=== PATIENT | female | born 1965 | race Caucasian/White ===

== ENCOUNTER → 2016-10-17 | Outpatient (CLI) | payer BC, OTHER ==
[~2016-10-17] MED LIST: ALBU1AER9 INH; ASCO1CAP3 PO; BIOT1CAP8 PO; CALC-354 PO; CALC500C73 PO; CHOL100010 PO; FLUO0.05 TOP; HYDR12.56 PO; IBUP-1427 PO; LORA-741 PO; MOME100A INH; PRLSR20 PO; [UNRECOGNIZED DRUG - OTHER] PO
== END | disposition home or self-care (01) ==
LOC: C.LABBFT 15:54
PROVIDERS: ATTEND Internal Medicine
DX: L65.9 Nonscarring hair loss, unspecified (principal)

== ENCOUNTER → 2016-10-26 | Day surgery (SDC) | payer BC ==
[2016-10-18 11:48] VITALS: BMI 38.0
[~2016-10-26] VITALS: Ht 167.6 cm; Wt 106.8 kg
[~2016-10-26] MED LIST changes: -ASCO1CAP3 PO; -CALC-354 PO; -CHOL100010 PO; -FLUO0.05 TOP; -HYDR12.56 PO; -IBUP-1427 PO; +LIDOCAINE HCL 2% 2 ML VIAL (20MG/ML) ONE; +ONDANSETRON INJ 2 MG/ML 2 ML VIAL ONE; +PROPOFOL IV EMULSION 10 MG/ML 20 ML VIAL IV ONE; +SODIUM CHLORIDE 0.9% 500ML 500 ML IV ONE
[2016-10-26 09:31] VITALS: Ht 167.6 cm; Wt 106.8 kg
--- NOTE | 2016-10-26 10:30 | Endo History and Physical ---
History & Physical Date of Service: Oct 26, 2016. Chief Complaint: Hx tubular adenoma Referring Physician: Dr. Brenner History of Present Illness 51 yo CF who presents for colonoscopy secondary to history of colon polyps. Past Surgical History Hx Cardiac Surgery: No Hx Internal Defibrillator: No Hx Pacemaker: No Hx Abdominal Surgery: Yes (GASTRIC BYPASS, RON[place]D) Hx of Implantable Prosthesis: No Hx Post-Op Nausea and Vomiting: Yes Hx Cancer Surgery: No Hx Thoracic Surgery: No Hx Orthopedic: Yes (LT FOOT SURGERY WITH SCREW) Hx Urinary Tract Surgery: No Family History Colon CA, Polyp Social History Smoking Status: Former Smoker Hx Substance Use: No Hx Alcohol Use: Yes (QUIT 24 YEARS AGO) Allergies Coded Allergies: Adhesives (Verified Allergy, Unknown, REDNESS, 10/18/16) Latex1 -Allergic Contact Dermititis (Verified Allergy, Unknown, REDNESS, ) NO KNOWN DRUG ALLERGIES (Verified Allergy, Unknown, ., 10/18/16) Current Medications Reported Home Medications Medications Dose Route/Sig Max Daily Dose Days Date Category [Vitamin A,D,E,K] 1 Tab PO QAM 10/18/16 Reported Calcium (Calcium Carbonate) 500 Mg Chw 1 Tab PO QAM 10/18/16 Reported Biotin 1 Mg Cap 1 Tab PO QAM 10/18/16 Reported Prilosec (Omeprazole) 20 Mg Capcr 20 Mg PO QAM 10/18/16 Reported Ativan (Lorazepam) 0.5 Mg Tab 0.5 Mg PO BID PRN 10/18/16 Reported Proair Hfa (Albuterol Sulfate) 108 Mcg/ Aer 1-2 Puff INH PRN 06/06/15 Reported Dulera 100/5 Mcg (Mometasone Furoate-Formoterol) 1 Aer Aer 2 Puff INH BID 09/04/13 Reported Vital Signs Weight (Kilograms): 106.82 Height (Feet): 5 Height (Inches): 6 Date Time Temp Pulse Resp B/P Pulse Ox O2 Delivery O2 Flow Rate FiO2 10/26/16 09:42 36.7 73 18 140/71 96 Room Air Physical Exam General Appearance: WD/WN, no apparent distress Respiratory/Chest: Auscultation: breath sounds normal Cardiovascular: Heart Auscultation: RRR Abdomen: Bowel Sounds: normal Inspection & Palpation: soft, non-distended, no tenderness, guarding & rebound Assessment and Plan Assessment: 51 yo CF who presents for colonoscopy secondary to history of colon polyps. Plan: Proceed with colonoscopy.
--- NOTE | 2016-10-26 11:28 | Discharge Instructions ---
Endoscopy Patient Instructions Date / Procedure(s) Performed Oct 26, 2016. Colonoscopy Allergy Information Coded Allergies: Adhesives (Verified Allergy, Unknown, REDNESS, 10/18/16) Latex1 -Allergic Contact Dermititis (Verified Allergy, Unknown, REDNESS, ) NO KNOWN DRUG ALLERGIES (Verified Allergy, Unknown, ., 10/18/16) Discharge Date / Findings Oct 26, 2016. Colon polyps Medication Instructions OK to resume all medications today as prescribed Reported Home Medications Medications Dose Route/Sig Max Daily Dose Days Date Category [Vitamin A,D,E,K] 1 Tab PO QAM 10/18/16 Reported Calcium (Calcium Carbonate) 500 Mg Chw 1 Tab PO QAM 10/18/16 Reported Biotin 1 Mg Cap 1 Tab PO QAM 10/18/16 Reported Prilosec (Omeprazole) 20 Mg Capcr 20 Mg PO QAM 10/18/16 Reported Ativan (Lorazepam) 0.5 Mg Tab 0.5 Mg PO BID PRN 10/18/16 Reported Proair Hfa (Albuterol Sulfate) 108 Mcg/ Aer 1-2 Puff INH PRN 06/06/15 Reported Dulera 100/5 Mcg (Mometasone Furoate-Formoterol) 1 Aer Aer 2 Puff INH BID 09/04/13 Reported Provider Instructions Activity Restrictions - No exercising or heavy lifting for 24 hours. - Do not drink alcohol the day of the procedure. - Do not drive a car or operate machinery until the day after the procedure. - Do not make any important decisions or sign important papers in 24 hours after the procedure. Following Day: - Return to full activity which may include returning to work/school. Diet Start your diet with liquids and light foods (jello, soup, juice, toast). Then eat your usual diet if not nauseated. Treatment For Common After Affects For mild abdominal pain, bloating, or excessive gas: - Rest - Eat lightly - Lie on right side Follow-Up Information Follow-up with Dr. Brenner as scheduled Anesthesia Information What You Should Know You have had a procedure that required some medicine to reduce anxiety and discomfort. This treatment is called moderate sedation. After receiving the treatment, you may be sleepy, but you will be able to breathe on your own. The effects of the treatment may last for several hours. Follow these instructions along with Activity/Diet recommendations noted above: * Do NOT do anything where dizziness or clumsiness would be dangerous. * Rest quietly at home today, then you can be up and about tomorrow. * Have a responsible person stay with you the rest of today. * You may have had an I.V. today. If so, you may take the dressing off later today. Recommendations Call your doctor if: * Trouble breathing * Continuous vomiting for more than 24 hours * Temperature above 101 degrees * Severe abdominal pain or bloating * Pain not relieved by pain medicine ordered * There is increased drainage or redness from any incision * A large amount of rectal bleeding greater than 2-3 tablespoons. (If you had a polyp/s removed or have hemorrhoids, a small amount of blood - from the rectum is to be expected.) * You have any unanswered questions or concerns. IN THE EVENT OF A SERIOUS EMERGENCY, GO TO THE NEAREST EMERGENCY ROOM Your discharge instructions were prepared by provider Ronald Jerez. Patient Instructions Signature Page Consuelo Khan Patient (or Guardian) Signature/Date: I have read and understand the instructions given to me by my caregivers. Caregiver/RN/Doctor Signature/Date: The above-named patient and/or guardian has received patient instructions on this date. + Original Patient Signature Page (only) stays with chart. Please make copy for patient.
--- NOTE | 2016-10-26 11:35 | GI REPORT ---
Procedure Date: 10/26/2016 10:53 AM Procedure: Colonoscopy Indications: High risk colon cancer surveillance: Personal history of colonic polyps Medicines: Monitored Anesthesia Care Complications: No immediate complications. Estimated Blood Loss: Estimated blood loss: none. Procedure: Pre-Anesthesia Assessment: - Prior to the procedure, a History and Physical was performed, and patient medications and allergies were reviewed. The patient's tolerance of previous anesthesia was also reviewed. The risks and benefits of the procedure and the sedation options and risks were discussed with the patient. All questions were answered, and informed consent was obtained. Prior Anticoagulants: The patient has taken no previous anticoagulant or antiplatelet agents. ASA Grade Assessment: III - A patient with severe systemic disease. After reviewing the risks and benefits, the patient was deemed in satisfactory condition to undergo the procedure. After I obtained informed consent, the scope was passed under direct vision. Throughout the procedure, the patient's blood pressure, pulse, and oxygen saturations were monitored continuously. The On-site loaner was introduced through the anus and advanced to the terminal ileum. The colonoscopy was performed without difficulty. The patient tolerated the procedure well. The quality of the bowel preparation was good. The terminal ileum, ileocecal valve, appendiceal orifice, and rectum were photographed. Findings: A 3 mm polyp was found in the transverse colon. The polyp was sessile. The polyp was removed with a cold biopsy forceps. Resection and retrieval were complete. A 6 mm polyp was found in the sigmoid colon. The polyp was sessile. The polyp was removed with a hot snare. Resection and retrieval were complete. Impression: - One 3 mm polyp in the transverse colon, removed with a cold biopsy forceps. Resected and retrieved. - One 6 mm polyp in the sigmoid colon, removed with a hot snare. Resected and retrieved. Recommendation: - Resume previous diet. - Continue present medications. - Repeat colonoscopy for surveillance based on pathology results. - Return to primary care physician as previously scheduled. Ronald Jerez, DO 10/26/2016 11:34:21 AM This report has been signed electronically. Note Initiated On: 10/26/2016 10:53 AM
--- NOTE | 2016-10-26 11:55 | Anesthesiology Progress Note ---
Anesthesia Post Op Note Date & Time Oct 26, 2016 at 11:55 Vital Signs Pain Intensity: 0 Vital Signs Past 12 Hours Date Time Temp Pulse Resp B/P Pulse Ox O2 Delivery O2 Flow Rate FiO2 10/26/16 11:42 61 16 112/72 97 Room Air 10/26/16 11:27 76 16 112/74 97 Room Air 10/26/16 09:42 36.7 73 18 140/71 96 Room Air Notes Mental Status: alert / awake / arousable, participated in evaluation Pt Amnestic to Procedure: Yes Nausea / Vomiting: adequately controlled Pain: adequately controlled Airway Patency, RR, SpO2: stable & adequate BP & HR: stable & adequate Hydration State: stable & adequate Anesthetic Complications: no major complications apparent
[2016-10-26 11:57] VITALS: BP 118/74; PULSE 58; O2SAT 96
== END | disposition home or self-care (01) ==
LOC: C.GI 09:18
PROVIDERS: ATTEND Internal Medicine
DX: Z12.11 Encounter for screening for malignant neoplasm of colon (principal); Z86.010 Personal history of colon polyps; D12.3 Benign neoplasm of transverse colon; D12.5 Benign neoplasm of sigmoid colon; J45.909 Unspecified asthma, uncomplicated; F41.9 Anxiety disorder, unspecified; Z68.38 Body mass index [BMI] 38.0-38.9, adult; E66.9 Obesity, unspecified; Z91.040 Latex allergy status; Z98.84 Bariatric surgery status; Z87.891 Personal history of nicotine dependence; Z98.890 Other specified postprocedural states; Z80.0 Family history of malignant neoplasm of digestive organs

== ENCOUNTER → 2017-05-10 | Outpatient (CLI) | payer BC ==
[~2017-05-10] MED LIST changes: -LIDOCAINE HCL 2% 2 ML VIAL (20MG/ML) ONE; -ONDANSETRON INJ 2 MG/ML 2 ML VIAL ONE; -PROPOFOL IV EMULSION 10 MG/ML 20 ML VIAL IV ONE; -SODIUM CHLORIDE 0.9% 500ML 500 ML IV ONE
== END | disposition home or self-care (01) ==
LOC: C.PATHSPEC 17:17
PROVIDERS: ATTEND Obstetrics & Gynecology
DX: N90.7 Vulvar cyst (principal)

== ENCOUNTER → 2017-05-22 | Outpatient (CLI) | payer BC ==
[~2017-05-22] MED LIST changes: +GADAVIST IV PRN
--- NOTE | 2017-05-22 11:27 | DIAGNOSTIC IMAGING REPORT ---
LUMBAR SPINE COMBINATION CLINICAL HISTORY: 51 years-old Female with LOW BACK PAIN; LUMBAR RADICULOPATHY. Patient reports that the pain radiates into the right hip with numbness. Patient went to a chiropractor which reportedly made the pain worse. COMPARISON: Lumbar spine CT 05/01/2012 TECHNIQUE: Multiplanar, multi sequence MRI of the lumbar spine was performed both with and without the use of 8 mL Gadavist. FINDINGS: There is straightening of the normal lumbar lordosis. Modic type I endplate degenerative changes are present at L4-L5 and to a minimal extent along the anteroinferior aspect of L1. Intervertebral disc space narrowing seen most prominently at the L3-L4 and L4-L5 levels with associated posterior spondylotic spurring and annular disc bulging as below. There is an annular fissure at L4-L5. Varying degrees of facet arthropathy noted within the lower lumbar spine. Conus medullaris terminates at the T12-L1 level. Signal from the cord is within normal limits. No focal fracture or marrow replacing process identified. Mild convex left curvature of the lumbar spine redemonstrated. No abnormal enhancement is identified. The imaged intra-abdominal, intrapelvic and paraspinal structures demonstrate no gross abnormal. T12-L1: No central canal or neural foraminal stenosis. L1-L2: Mild facet arthrosis without significant central canal or neural foraminal stenosis. L2-L3: Mild intervertebral disc space narrowing and disc desiccation with facet arthrosis. Small circumferential broad-based disc bulge effaces the ventral thecal sac and causes mild bilateral foraminal narrowing. L3-L4: Mild to moderate intervertebral disc space narrowing with mild facet arthrosis, ligamentum flavum redundancy and small left facet effusion is present with posterior spondylitic ridging, circumferential annular disc bulge and broad-based right foraminal/extraforaminal disc protrusion seen nicely on image 16 of the axial T2 series causes [id number] right foraminal narrowing. The left foramen and central canal are generally patent. L4-L5: Moderate intervertebral disc space narrowing, facet arthrosis and ligamentum flavum redundancy noted with posterior spondylitic spurring. Circumferential annular disc bulge is present with a small annular fissure. These changes cause mild central canal, mild left and moderate right foraminal narrowing. L5-S1: Mild intervertebral disc space narrowing with posterior spondylitic spurring, facet arthrosis and facet effusions are noted. Broad-based posterior disc bulge effaces the ventral thecal sac without significant central canal narrowing. There is mild right foraminal stenosis. The left foramen is patent. IMPRESSION: 1. Multilevel discogenic degenerative changes and facet arthropathy as above, most pronounced at the L3-L4 and L4-L5 levels. Modic type I endplate changes are seen at L4-L5. 2. At L3-L4, degenerative changes cause mild to moderate right foraminal stenosis. 3. At L4-L5, combination of facet arthrosis and discogenic degeneration cause mild central canal, mild left and moderate right foraminal narrowing. 4. No abnormal enhancement is identified. The above report was generated using voice recognition software. It may contain grammatical, syntax or spelling errors. Electronically signed by: George Helton M.D. 05/22/2017 11:26 AM Dictated Date/Time: 05/22/2017 11:12 AM
== END | disposition home or self-care (01) ==
LOC: C.MRI 09:58
PROVIDERS: ATTEND Internal Medicine
DX: M47.26 Other spondylosis with radiculopathy, lumbar region (principal); M48.06 Spinal stenosis, lumbar region

== ENCOUNTER 2017-09-24 12:03 | Emergency (ER) | payer BC ==
[~2017-09-24] VITALS: Ht 167.6 cm; Wt 71.9 kg
[~2017-09-24 12:03] MED LIST changes: -GADAVIST IV PRN; -LORA-741 PO; +OXYC1TAB3 PO; +PEDICHW50 PO; +VITA80005 PO
[2017-09-24 12:14] VITALS: TEMP 36.6; Ht 167.6 cm; Wt 71.9 kg
[2017-09-24 12:37] LABS: URINE APPEARANCE CLEAR (CLEAR); URINE BILIRUBIN NEG (NEG); URINE COLOR YELLOW; URINE EPITHELIAL CELL AUTO 0-5 /lpf (0-5); URINE NITRITE NEG (NEG); URINE PH 5.5 (4.5-7.5); UROBILINOGEN NEG (NEG); ZZUR CULT IF INDIC CLEAN CATCH NO
[2017-09-24 12:38] LABS: MANUAL MICROSCOPIC REQUIRED? NO; REVIEW REQ? NO
[2017-09-24] MEDS ORDERED: MOME200A INH (12:47)
[2017-09-24] MEDS ORDERED: MULTCHW22 PO (12:47)
[2017-09-24] MEDS ORDERED: VITATAB19 PO (12:48)
[2017-09-24] MEDS ORDERED: OMEP20CA9 PO (12:48)
[2017-09-24] MEDS ORDERED: CALC600T9 PO (12:48)
[2017-09-24] MEDS ORDERED: ONDANSETRON INJ 2 MG/ML 2 ML VIAL IV STA (12:56)
[2017-09-24] MEDS ORDERED: KETOROLAC TROMETHAMINE 30 MG/ML VIAL IV STA (12:59)
[2017-09-24 13:15] LABS: BASO % 0.5 %; BASO ABS # 0.04 K/uL (0-0.2); COMPLETE YES; EOS % 1.7 %; HEMATOCRIT 44.2 % (37-47); IG% 0.2 %; LYMPH % 22.4 %; LYMPH ABS # 1.89 K/uL (1.2-3.4); MEAN CELL VOLUME 91.9 fL (80-100); MEAN CORPUSCULAR HGB CONC 34.8 g/dl (32-36); MEAN PLATELET VOLUME 11.5 fL (7.4-10.4); MONO % 6.5 %; NEUT % 68.7 %; PLATELET COUNT 186 K/uL (130-400); RED BLOOD COUNT 4.81 M/uL (4.2-5.4); WHITE BLOOD COUNT 8.45 K/uL (4.8-10.8)
--- NOTE | 2017-09-24 13:17 | EMERGENCY ROOM VISIT NOTE ---
History Report prepared by Frances: Aubrey Bansal Under the Supervision of: Dr. Lauren Andrews D.O. First contact with patient: 12:37 Chief Complaint: URINARY SYMPTOMS Stated Complaint: BLOOD IN URINE Nursing Triage Summary: Pt. reports onset of bloody urine yesterday accompanied by suprapubic pain and right sided back pain. Denies pain with urination. History of Present Illness The patient is a 52 year old female who presents to the Emergency Room with complaints of persistent hematuria starting yesterday. She additionally notes that she has been having right sided back pain for the past few months, though she states that she was diagnosed with a slipped disc. However, she states that the pain has been worse yesterday and waxes and wanes. She reports that she has a history of UTIs, though she does not have any history of kidney stones. The patient additionally notes that she is currently nauseated and has some pressure in her abdomen. She denies any leg pain, leg swelling, and other medical problems. Source of History: patient Onset: yesterday Position: other (global) Quality: other (hematuria) Timing: other (persistent) Associated Symptoms: + nausea, + abdominal pain (pressure), + back pain Review of Systems See HPI for pertinent positives & negatives. A total of 10 systems reviewed and were otherwise negative. Past Medical & Surgical Medical Problems: (1) Asthma Family History Cancer Diabetes mellitus Gallbladder disease Heart disease Hypertension Social History Smoking Status: Former Smoker Alcohol Use: none Drug Use: none Marital Status: Housing Status: lives with family Occupation Status: employed Current/Historical Medications Scheduled Calcium Carbonate-Vitamin D (Calcium + D), 1 TAB PO DAILY Mometasone Furoate-Formoterol (Dulera 200/5 Mcg), 2 PUFF INH DAILY Multiple Vitamins W/ Minerals ([place]), 1 TAB PO BID Omeprazole (Prilosec), 20 MG PO DAILY Vitamin A-Beta Carotene (Vitamin A), 1 TAB PO DAILY Allergies Coded Allergies: Adhesives (Verified Allergy, Unknown, REDNESS, 10/18/16) Latex1 -Allergic Contact Dermititis (Verified Allergy, Unknown, REDNESS, ) NO KNOWN DRUG ALLERGIES (Verified Allergy, Unknown, ., 10/18/16) Physical Exam Vital Signs Date Time Temp Pulse Resp B/P (MAP) Pulse Ox O2 Delivery O2 Flow Rate FiO2 09/24/17 15:19 56 16 126/75 97 09/24/17 14:20 61 16 131/76 97 Room Air 09/24/17 13:11 50 16 157/91 96 Room Air 09/24/17 12:14 36.6 64 20 153/102 98 Room Air Physical Exam HEENT: Head - normocephalic and atraumatic Pupils are equal, round, and reactive to light. Extraocular eye muscles are intact, and sclera are anicteric. Nose - moist nasal mucosa without discharge. Mouth - moist buccal mucosa. Oropharynx is nonerythematous and there is no tonsillar exudate or edema noted. Neck: Supple; no JVD, nuchal rigidity, cervical lymphadenopathy. Heart: Regular rate and rhythm. There is a normal S1 and S2 with no murmurs, clicks, or gallops appreciated. Lungs: Clear to auscultation bilaterally with no wheezes, rales, or rhonchi. Abdomen: Suprapubic pain with palpation. Soft, nondistended, with good bowel sounds. There are no palpable pulsatile masses or hepatosplenomegaly. There is no guarding, rigidity, or rebound noted. Extremities: No evidence of cyanosis, clubbing, or edema. There are easily palpable peripheral pulses. Skin: warm and dry with good turgor and no rashes. Medical Decision & Procedures ER Provider Diagnostic Interpretation: Radiology results as stated below per my review and the radiologist's interpretation: CT SCAN OF THE ABDOMEN AND PELVIS WITHOUT CONTRAST CLINICAL HISTORY: Right flank pain and hematuria COMPARISON STUDY: No previous studies for comparison. TECHNIQUE: CT scan of the abdomen and pelvis was performed from the lung bases to the proximal femurs. Images are reviewed in the axial, sagittal, and coronal planes. IV contrast was not administered for this examination. A dose lowering technique was utilized adhering to the principles of ALARA. CT DOSE: 750.98 mGy.cm FINDINGS: Lower chest: There is a hiatal hernia. There are postsurgical changes of a gastric bypass. There is a trace right pleural effusion Liver: The unenhanced liver is normal in size, contour, and attenuation. There is no intrahepatic biliary ductal dilatation. Gallbladder: Surgically absent Spleen: Normal in size and attenuation. Pancreas: Unremarkable. Adrenal glands: Unremarkable. Kidneys: There is a 7 mm calculus within the right renal pelvis. There is a 4.5 mm lower pole left renal calculus. No right renal calculi are visualized. There is minimal fullness of the left renal collecting system. No ureteral or bladder calculi are visualized. There is a suggestion of minimal wall thickening of the left renal pelvis. The findings are likely secondary to infection or intermittent obstruction. Bowel: There are no transition zones indicate bowel obstruction. The appendix appears normal. There is no acute diverticulitis. There are postsurgical changes of a gastric bypass and Sean-en-Y anastomosis. Peritoneum: There is no intraperitoneal free air or abdominal ascites. Vasculature: The abdominal aorta is normal in course and caliber. Adenopathy: None. Pelvic viscera: The uterus appears surgically absent. Skeletal structures: No destructive osseous lesions are seen. IMPRESSION: 1. Left-sided nephrolithiasis. 2. Minimal fullness the left renal collecting system with minimal wall thickening of the left renal pelvis. The findings are likely secondary to infection or intermittent obstruction 3. No ureteral or bladder calculi identified 4. No evidence of bowel obstruction. No evidence of free air 5. Surgically absent uterus and gallbladder 6. Postsurgical changes are prior gastric bypass and Sean-en-Y anastomosis Electronically signed by: Tommy Bourne M.D. 09/24/2017 2:20 PM Dictated Date/Time: 09/24/2017 2:14 PM Laboratory Results 09/24/17 12:33 Red Blood Count 4.81, Mean Corpuscular Volume 91.9, Mean Corpuscular Hemoglobin 32.0, Mean Corpuscular Hemoglobin Concent 34.8, Mean Platelet Volume 11.5, Neutrophils (%) (Auto) 68.7, Lymphocytes (%) (Auto) 22.4, Monocytes (%) (Auto) 6.5, Eosinophils (%) (Auto) 1.7, Basophils (%) (Auto) 0.5, Neutrophils # (Auto) 5.81, Lymphocytes # (Auto) 1.89, Monocytes # (Auto) 0.55, Eosinophils # (Auto) 0.14, Basophils # (Auto) 0.04 09/24/17 12:33 Test 09/24/17 12:00 09/24/17 12:33 Urine Color YELLOW Urine Appearance CLEAR (CLEAR) Urine pH 5.5 (4.5-7.5) Urine Specific [place] 1.010 (1.000-1.030) Urine Protein NEG (NEG) Urine Glucose (UA) NEG (NEG) Urine Ketones NEG (NEG) Urine Occult Blood 3+ (NEG) Urine Nitrite NEG (NEG) Urine Bilirubin NEG (NEG) Urine Urobilinogen NEG (NEG) Urine Leukocyte Esterase NEG (NEG) Urine WBC (Auto) 1-5 /hpf (0-5) Urine RBC (Auto) 10-30 /hpf (0-4) Urine Hyaline Casts (Auto) 0 /lpf (0-5) Urine Epithelial Cells (Auto) 0-5 /lpf (0-5) Urine Bacteria (Auto) NEG (NEG) White Blood Count 8.45 K/uL (4.8-10.8) Red Blood Count 4.81 M/uL (4.2-5.4) Hemoglobin 15.4 g/dL (12.0-16.0) Hematocrit 44.2 % (37-47) Mean Corpuscular Volume 91.9 fL (80-100) Mean Corpuscular Hemoglobin 32.0 pg (25-34) Mean Corpuscular Hemoglobin Concent 34.8 g/dl (32-36) Platelet Count 186 K/uL (130-400) Mean Platelet Volume 11.5 fL (7.4-10.4) Neutrophils (%) (Auto) 68.7 % Lymphocytes (%) (Auto) 22.4 % Monocytes (%) (Auto) 6.5 % Eosinophils (%) (Auto) 1.7 % Basophils (%) (Auto) 0.5 % Neutrophils # (Auto) 5.81 K/uL (1.4-6.5) Lymphocytes # (Auto) 1.89 K/uL (1.2-3.4) Monocytes # (Auto) 0.55 K/uL (0.11-0.59) Eosinophils # (Auto) 0.14 K/uL (0-0.5) Basophils # (Auto) 0.04 K/uL (0-0.2) RDW Standard Deviation 43.6 fL (36.4-46.3) RDW Coefficient of Variation 13.1 % (11.5-14.5) Immature Granulocyte % (Auto) 0.2 % Immature Granulocyte # (Auto) 0.02 K/uL (0.00-0.02) Anion Gap 6.0 mmol/L (3-11) Est Creatinine Clear Calc Drug Dose 104.0 ml/min Estimated GFR () 119.1 Estimated GFR (Non- 102.8 BUN/Creatinine Ratio 18.9 (10-20) Calcium Level 8.6 mg/dl (8.5-10.1) Laboratory results per my review. Medications Administered Medications (Trade) Dose Ordered Sig/Shaan Route Start Time Stop Time Status Last Admin Dose Admin Ondansetron HCl (Zofran Inj) 4 mg NOW STAT IV 09/24/17 12:56 09/24/17 12:57 DC 09/24/17 13:06 4 MG Ketorolac Tromethamine (Toradol Inj) 30 mg NOW STAT IV 09/24/17 12:59 09/24/17 13:00 DC 09/24/17 13:06 30 MG Procedure Ordered: Zofran IV and Toradol IV ED Course 1237: Past medical records reviewed. The patient was evaluated in room A9. A complete history and physical exam was performed. An IV lock was initiated and labs are drawn as above.. 1256: Zofran 4mg IV 1259: Toradol 30mg IV. The patient will go for CT scan of the abdomen/pelvis to rule out a ureteral stone. 1439: I had a long conversation with the patient, and they are going to follow up with Dr. Naylor. I discussed the discharge instructions with them, and she will be discharged home. Medical Decision The patient is a 52 year old female who presents to the ED with hematuria. Differential diagnosis includes ureteral colic, appendicitis, diverticulitis, and colitis. Lab results show: no leukocytosis, stable H&H, BUN 12, creatinine of 0.6, glucose is normal, potassium is slightly low at 3.2, and there is blood in the urine. This is a 52-year-old female patient who presents to the emergency department with right-sided flank pain and hematuria. CT showed no obvious ureteral stone on the right. It may be possible that the patient has already passed a stone on that side. She is more comfortable at this time. The patient has a 7 mm left-sided stone noted on CT. I've asked the patient to follow-up with urology. she is to return here to the emergency department immediately for worsening pain, fever or vomiting.. Medication Reconcilliation Current Medication List: was personally reviewed by me Blood Pressure Screening Patient's blood pressure: Elevated blood pressure Blood pressure disposition: Elevated BP felt to be situational Impression Primary Impression: Right flank pain Additional Impressions: Hematuria Hypokalemia Scribe Attestation The scribe's documentation has been prepared under my direction and personally reviewed by me in its entirety. I confirm that the note above accurately reflects all work, treatment, procedures, and medical decision making performed by me. Departure Information Dispostion Home / Self-Care Referrals Russ Brenner M.D. (PCP) Forms HOME CARE DOCUMENTATION FORM, IMPORTANT VISIT INFORMATION Patient Instructions ED Flank Pain Uncertain Cause, Hematuria, Hematuria Poss Causes, My [facility] Additional Instructions Rest. take plenty of clear liquids Use tylenol or motrin for pain Follow up on Monday with Dr. Naylor Return to the ER for fevers or worsening pain Problem Qualifiers Additional Impressions: Hematuria Hematuria type: unspecified type Qualified Codes: R31.9 - Hematuria, unspecified
[2017-09-24 13:22] LABS: BUN/CREATININE RATIO 18.9 (10-20); CALCIUM 8.6 mg/dl (8.5-10.1); CREATININE 0.65 mg/dl (0.60-1.20); POTASSIUM 3.2 mmol/L (3.5-5.1)
--- NOTE | 2017-09-24 14:21 | DIAGNOSTIC IMAGING REPORT ---
CT SCAN OF THE ABDOMEN AND PELVIS WITHOUT CONTRAST CLINICAL HISTORY: Right flank pain and hematuria COMPARISON STUDY: No previous studies for comparison. TECHNIQUE: CT scan of the abdomen and pelvis was performed from the lung bases to the proximal femurs. Images are reviewed in the axial, sagittal, and coronal planes. IV contrast was not administered for this examination. A dose lowering technique was utilized adhering to the principles of ALARA. CT DOSE: 750.98 mGy.cm FINDINGS: Lower chest: There is a hiatal hernia. There are postsurgical changes of a gastric bypass. There is a trace right pleural effusion Liver: The unenhanced liver is normal in size, contour, and attenuation. There is no intrahepatic biliary ductal dilatation. Gallbladder: Surgically absent Spleen: Normal in size and attenuation. Pancreas: Unremarkable. Adrenal glands: Unremarkable. Kidneys: There is a 7 mm calculus within the right renal pelvis. There is a 4.5 mm lower pole left renal calculus. No right renal calculi are visualized. There is minimal fullness of the left renal collecting system. No ureteral or bladder calculi are visualized. There is a suggestion of minimal wall thickening of the left renal pelvis. The findings are likely secondary to infection or intermittent obstruction. Bowel: There are no transition zones indicate bowel obstruction. The appendix appears normal. There is no acute diverticulitis. There are postsurgical changes of a gastric bypass and Sean-en-Y anastomosis. Peritoneum: There is no intraperitoneal free air or abdominal ascites. Vasculature: The abdominal aorta is normal in course and caliber. Adenopathy: None. Pelvic viscera: The uterus appears surgically absent. Skeletal structures: No destructive osseous lesions are seen. IMPRESSION: 1. Left-sided nephrolithiasis. 2. Minimal fullness the left renal collecting system with minimal wall thickening of the left renal pelvis. The findings are likely secondary to infection or intermittent obstruction 3. No ureteral or bladder calculi identified 4. No evidence of bowel obstruction. No evidence of free air 5. Surgically absent uterus and gallbladder 6. Postsurgical changes are prior gastric bypass and Sean-en-Y anastomosis Electronically signed by: Tommy Bourne M.D. 09/24/2017 2:20 PM Dictated Date/Time: 09/24/2017 2:14 PM
[2017-09-24 15:19] VITALS: BP 126/75; PULSE 56; O2SAT 97
[2017-09-28] MEDS ORDERED: BIOT1CAP9 PO (10:22)
[2017-09-28] MEDS ORDERED: ZNTT/150 PO (10:22)
[2017-09-28] MEDS ORDERED: DPRSO15 TOP (10:22)
[2017-09-28] MEDS ORDERED: MULT1CAP52 PO (10:22)
[2017-09-28] MEDS ORDERED: PEDICHW44 PO (10:22)
[2017-09-28] MEDS ORDERED: OXYC7.5T65 PO (10:22)
[2017-09-29] MEDS ORDERED: OXYC-57 PO (12:53)
== END 2017-09-24 15:16 | disposition home or self-care (01) ==
LOC: C.EDB 12:04 → C.EDA 15:16
DX: R10.11 Right upper quadrant pain (principal); R10.31 Right lower quadrant pain; R31.9 Hematuria, unspecified; E87.6 Hypokalemia; N20.0 Calculus of kidney; M54.9 Dorsalgia, unspecified; J45.909 Unspecified asthma, uncomplicated; Z87.440 Personal history of urinary (tract) infections; Z87.891 Personal history of nicotine dependence; Z83.3 Family history of diabetes mellitus; Z82.49 Family history of ischemic heart disease and other diseases of the circulatory system

== ENCOUNTER → 2017-09-27 | Outpatient (CLI) | payer BC ==
[~2017-09-27] MED LIST changes: -ALBU1AER9 INH; -BIOT1CAP8 PO; +BIOT1CAP9 PO; -CALC500C73 PO; +CALC600T9 PO; +DPRSO15 TOP; -MOME100A INH; +MOME200A INH; +MULT1CAP52 PO; +MULTCHW22 PO; +OMEP20CA9 PO; +OXYC-57 PO; +OXYC-737 PO; -OXYC1TAB3 PO; +OXYC7.5T65 PO; +PEDICHW44 PO; -PEDICHW50 PO; -PRLSR20 PO; +RANI150T85 PO; +TAMS0.4C38 PO; -VITA80005 PO; +VITATAB19 PO; -[UNRECOGNIZED DRUG - OTHER] PO
--- NOTE | 2017-09-27 13:31 | DIAGNOSTIC IMAGING REPORT ---
CHEST 2 VIEWS ROUTINE CLINICAL HISTORY: 52 years-old Female presenting with N20.0 Kidney stones. TECHNIQUE: PA and lateral views of the chest were obtained. COMPARISON: 09/21/2015. FINDINGS: Cardiomediastinal silhouette normal. Lungs and pleural spaces clear. Degenerative changes of the thoracic spine. Cholecystectomy and epigastric clips noted. IMPRESSION: 1. No acute cardiopulmonary disease. Electronically signed by: Chico Marie M.D. 09/27/2017 1:29 PM Dictated Date/Time: 09/27/2017 1:28 PM
== END | disposition home or self-care (01) ==
LOC: C.RAD 12:52
PROVIDERS: ATTEND Urology
DX: N20.0 Calculus of kidney (principal)

== ENCOUNTER → 2017-09-27 | Outpatient (CLI) | payer BC ==
--- NOTE | 2017-09-28 13:48 | MAMMOGRAPHY REPORT ---
BILATERAL DIGITAL SCREENING MAMMOGRAM TOMOSYNTHESIS WITH CAD: 09/27/2017 CLINICAL HISTORY: Routine screening. Patient has no complaints. TECHNIQUE: Breast tomosynthesis in addition to standard 2D mammography was performed. Current study was also evaluated with a Computer Aided Detection (CAD) system. COMPARISON: Comparison is made to exams dated: 09/26/2016 mammogram, 09/14/2015 mammogram, 3 mammogram, 09/10/2012 mammogram, 09/07/2011 mammogram, and 09/04/2009 mammogram - [facility]. BREAST COMPOSITION: The tissue of both breasts is almost entirely fatty. FINDINGS: There is decreased size of the breasts and decreased subcutaneous fat bilaterally, most li leeanne secondary to recent weight loss. There are scattered benign-appearing macro calcifications in t he breasts and stable intramammary lymph nodes in each upper outer quadrant. No suspicious mass, arc hitectural distortion or cluster of suspicious microcalcifications is seen. IMPRESSION: ACR BI-RADS CATEGORY 1: NEGATIVE There is no mammographic evidence of malignancy. A 1 year screening mammogram is recommended. The pa tient will receive written notification of the results. Approximately 10% of breast cancers are not detected with mammography. A negative mammographic report should not delay biopsy if a clinically suggestive mass is present. Zhanna Lennon M.D. ay/:09/27/2017 16:59:03 Recovery Collector: Betsy Munguia, [facility] letter sent: Normal 1/2 BI-RADS Code: ACR BI-RADS Category 1: Negative
== END | disposition home or self-care (01) ==
LOC: C.MAMM 13:39
PROVIDERS: ATTEND Obstetrics & Gynecology
DX: Z12.31 Encounter for screening mammogram for malignant neoplasm of breast (principal); N20.0 Calculus of kidney

== ENCOUNTER → 2017-09-27 | Outpatient (CLI) | payer BC | END | disposition home or self-care (01) | LOC: C.LABSPEC 17:04 | PROVIDERS: ATTEND Urology | DX: N20.0 Calculus of kidney (principal) ==

== ENCOUNTER → 2017-09-28 | Outpatient (CLI) | payer BC ==
[~2017-09-28] MED LIST changes: +ALBU1AER9 INH; +BIOT1CAP8 PO; +CALC500C73 PO; +MOME100A INH; -OXYC-737 PO; +OXYC1TAB3 PO; +PEDICHW50 PO; +PRLSR20 PO; -RANI150T85 PO; -TAMS0.4C38 PO; +VITA80005 PO; +ZNTT/150 PO; +[UNRECOGNIZED DRUG - OTHER] PO
--- NOTE | 2017-09-28 15:51 | DIAGNOSTIC IMAGING REPORT ---
KUB CLINICAL HISTORY: KIDNEY STONE flank pain COMPARISON STUDY: CT 09/24/2017 FINDINGS: suboptimal visibility of the kidneys due to overlying bowel content. 4.3 mm calcification overlying left kidney. Probable radiopaque bowel content overlying the left renal pelvis. Right kidney is poorly seen. Increased fecal material throughout the colon. Nonobstructive bowel pattern. IMPRESSION: Unchanging lower pole left renal calcification. Limited visibility of the remaining urinary tracts due to overlying fecal material. The above report was generated using voice recognition software. It may contain grammatical, syntax or spelling errors. Electronically signed by: Zach Chavez M.D. 09/28/2017 3:50 PM Dictated Date/Time: 09/28/2017 3:47 PM
== END | disposition home or self-care (01) ==
LOC: C.RAD 15:12
PROVIDERS: ATTEND Urology
DX: N20.0 Calculus of kidney (principal)

== ENCOUNTER → 2017-09-29 | Day surgery (SDC) | payer BC ==
[2017-09-28 10:23] VITALS: Ht 167.6 cm; Wt 69.1 kg
[~2017-09-29] VITALS: Ht 167.6 cm; Wt 69.1 kg
[~2017-09-29] MED LIST changes: -ALBU1AER9 INH; +ATROPINE SULFATE 0.1 MG/ML 5ML SYR IV PRN; -BIOT1CAP8 PO; -CALC500C73 PO; +CHECK SCOPOLAMINE PATCH PLACEMENT SCH; +CIPROFLOXACIN 400MG / D5W IV SCH; +DEXAMETHASONE SOD INJ 4 MG/ML VIAL ONE; +EpHEDrine SULFATE INJ 50 MG/ML AMP IV PRN; +FENTANYL CITRATE INJ 50 MCG/1 ML 2 ML VIAL IV PRN; +FENTANYL CITRATE INJ 50 MCG/1 ML 2 ML VIAL ONE; +HYDROmorphone INJ 1 MG/ML SYR IV PRN; +LIDOCAINE HCL 2% 2 ML VIAL (20MG/ML) ONE; +MIDAZOLAM HCL 1 MG/ML 2ML VIAL ONE; -MOME100A INH; +ONDANSETRON INJ 2 MG/ML 2 ML VIAL IV PRN; +ONDANSETRON INJ 2 MG/ML 2 ML VIAL ONE; +OXYC-737 PO; -OXYC1TAB3 PO; +OXYCODONE/ACETAMINOPHEN 5-325 TAB PO PRN; -PEDICHW50 PO; -PRLSR20 PO; +PROMETHAZINE HCL INJ 12.5 MG in SODIUM CHLORIDE 0.9% 50ML 50 ML IV PRN; +PROPOFOL IV EMULSION 10 MG/ML 20 ML VIAL IV ONE; +RANI150T85 PO; +SCOPOLAMINE 1.5 MG TDSY TD ONE; +SCOPOLAMINE 1.5 MG TDSY TD SCH; +TAMS0.4C38 PO; -VITA80005 PO; -ZNTT/150 PO; -[UNRECOGNIZED DRUG - OTHER] PO
--- NOTE | 2017-09-29 11:37 | History & Physical Bridge Note ---
H&P Re-Evaluation Bridge Note: I have examined the patient, reviewed the History & Physical and in the interval since the performance of the History & Physical I have noted the following changes of clinical significance: No changes noted
[2017-09-29] MEDS: LACTATED RINGER'S 1000ML 1,000 ML IV SCH ×2 (11:49→13:50)
--- NOTE | 2017-09-29 12:52 | Discharge Instructions ---
Discharge Instructions Date of Service Sep 29, 2017. Admission Reason for Admission: Stones Discharge Discharge Diagnosis / Problem: L renal stones s/p ESWL Discharge Goals Goal(s): Decrease discomfort, Improve disease control, Therapeutic intervention Activity Recommendations Activity Limitations: as noted below Lifting Limitations: no more than 25 pounds, gradually increase as tolerated Exercise/Sports Limitations: rest today, gradually increase as tolerated May Resume Sexual Activity: when tolerated Shower/Bathe: no limitations Driving or Machine Use: resume 1 day after discharge . Instructions / Follow-Up Instructions / Follow-Up Strain urine as instructed. Follow-up in office as scheduled with KUB Xray before appointment. Current Hospital Diet Patient's current hospital diet: Discharge Diet Recommended Diet: Regular Diet (good fluid intake) Procedures Procedures Performed: Left ESWL Pending Studies Studies pending at discharge: no Medical Emergencies . Who to Call and When: Medical Emergencies: If at any time you feel your situation is an emergency, please call 911 immediately. . Non-Emergent Contact Non-Emergency issues call your: Urologist Call Non-Emergent contact if: you have a fever, temperature is above 101, your pain is not controlled, your pain is worsening, your pain is concerning you, you have any medication questions . . "Provider Documentation" section prepared by Vic Cavazos. . VTE Core Measure Inpt VTE Proph given/why not?: SCD's [place] Drug Monitoring Program Search Results: patient reviewed within database, see additional documentation (patient with pain contract - did not call regular physician for refill despite previous discussion - #10 provided again, last Rx 2 days ago, contact PMD for Rx )
--- NOTE | 2017-09-29 13:05 | [facility] Post Operative Brief Note ---
Immediate Operative Summary Operative Date Sep 29, 2017. Pre-Operative Diagnosis Left Renal Stone Post-Operative Diagnosis Same Procedure(s) Performed Left ESWL Surgeon Dr. Raul Cavazos Roto Gravure Press Operator Surgeon(s) None Estimated Blood Loss 0 Findings Good stone fragmentation, both L renal stones targeted Specimens None Drains NA Anesthesia GALMA Complication(s) None Disposition Recovery Room / PACU
[2017-09-29 13:54] VITALS: BP 109/45; PULSE 55; TEMP 36.6; O2SAT 96
--- NOTE | 2017-09-29 14:16 | OPERATIVE REPORT ---
DATE OF OPERATION: 09/29/2017 PREOPERATIVE DIAGNOSIS: Left renal stones. POSTOPERATIVE DIAGNOSIS: Same. PROCEDURE: Left-sided renal extracorporeal shockwave lithotripsy. SURGEON: Dr. Vic Cavazos. MUTUEL CASHIER: None. ANESTHESIA: General anesthesia with laryngeal mask. COMPLICATIONS: None. FINDINGS: Good fragmentation of both targeted stones in the left kidney. DETAILS OF PROCEDURE: The patient was brought to the litho suite. He was correctly identified and the stone was visualized on his most recent x-rays. After the correct time out was performed the patient was positioned over the therapy head. An adequate level of anesthesia was administered. The extracorporeal shockwave lithotripsy treatment was then commenced. Please see the [facility] sheet for complete treatment summary. After completion of the procedure the patient was taken to the recovery room in stable condition. I attest to the content of the Intraoperative Record and any orders documented therein. Any exception s are noted below.
--- NOTE | 2017-09-29 14:21 | Anesthesia Progress Nt - [facility] ---
Anesthesia Post Op Note Date & Time Sep 29, 2017 at 14:21 Vital Signs Pain Intensity: 0 Vital Signs Past 12 Hours Date Time Temp Pulse Resp B/P (MAP) Pulse Ox O2 Delivery O2 Flow Rate FiO2 09/29/17 13:54 36.6 55 16 109/45 (66) 96 Room Air 09/29/17 13:50 36.8 112/72 09/29/17 13:49 72 17 09/29/17 13:49 73 17 94 09/29/17 13:45 110/66 09/29/17 13:44 53 8 09/29/17 13:44 53 8 95 09/29/17 13:40 107/63 09/29/17 13:39 51 0 94 09/29/17 13:39 53 0 09/29/17 13:35 111/66 09/29/17 13:34 54 4 95 09/29/17 13:34 54 4 09/29/17 13:30 113/62 09/29/17 13:29 53 7 09/29/17 13:29 53 7 97 09/29/17 13:26 124/64 09/29/17 13:24 58 11 09/29/17 13:24 85 11 100 09/29/17 13:20 37 60 14 128/80 100 Mask 6 09/29/17 13:20 120/66 09/29/17 13:19 11 128/80 09/29/17 13:19 11 09/29/17 10:33 36.9 58 16 110/70 (83) 97 Room Air Notes Mental Status: alert / awake / arousable, participated in evaluation Pt Amnestic to Procedure: Yes Nausea / Vomiting: adequately controlled Pain: adequately controlled Airway Patency, RR, SpO2: stable & adequate BP & HR: stable & adequate Hydration State: stable & adequate Anesthetic Complications: no major complications apparent
== END | disposition home or self-care (01) ==
LOC: X.SURG 10:19
PROVIDERS: ATTEND Urology
DX: N20.0 Calculus of kidney (principal); R31.9 Hematuria, unspecified; N39.0 Urinary tract infection, site not specified; K21.9 Gastro-esophageal reflux disease without esophagitis; E66.01 Morbid (severe) obesity due to excess calories; L40.9 Psoriasis, unspecified; J45.909 Unspecified asthma, uncomplicated; Z98.49 Cataract extraction status, unspecified eye; Z90.49 Acquired absence of other specified parts of digestive tract; Z98.84 Bariatric surgery status; Z90.710 Acquired absence of both cervix and uterus; Z90.89 Acquired absence of other organs; Z83.3 Family history of diabetes mellitus; Z82.49 Family history of ischemic heart disease and other diseases of the circulatory system; Z80.0 Family history of malignant neoplasm of digestive organs; Z87.891 Personal history of nicotine dependence; Z87.442 Personal history of urinary calculi

== ENCOUNTER → 2017-10-11 | Outpatient (CLI) | payer BC ==
[~2017-10-11] MED LIST changes: -ATROPINE SULFATE 0.1 MG/ML 5ML SYR IV PRN; -CHECK SCOPOLAMINE PATCH PLACEMENT SCH; -CIPROFLOXACIN 400MG / D5W IV SCH; -DEXAMETHASONE SOD INJ 4 MG/ML VIAL ONE; -EpHEDrine SULFATE INJ 50 MG/ML AMP IV PRN; -FENTANYL CITRATE INJ 50 MCG/1 ML 2 ML VIAL IV PRN; -FENTANYL CITRATE INJ 50 MCG/1 ML 2 ML VIAL ONE; -HYDROmorphone INJ 1 MG/ML SYR IV PRN; -LIDOCAINE HCL 2% 2 ML VIAL (20MG/ML) ONE; -MIDAZOLAM HCL 1 MG/ML 2ML VIAL ONE; -ONDANSETRON INJ 2 MG/ML 2 ML VIAL IV PRN; -ONDANSETRON INJ 2 MG/ML 2 ML VIAL ONE; -OXYC-737 PO; -OXYCODONE/ACETAMINOPHEN 5-325 TAB PO PRN; -PROMETHAZINE HCL INJ 12.5 MG in SODIUM CHLORIDE 0.9% 50ML 50 ML IV PRN; -PROPOFOL IV EMULSION 10 MG/ML 20 ML VIAL IV ONE; -RANI150T85 PO; -SCOPOLAMINE 1.5 MG TDSY TD ONE; -SCOPOLAMINE 1.5 MG TDSY TD SCH; -TAMS0.4C38 PO; +ZNTT/150 PO
--- NOTE | 2017-10-11 16:44 | DIAGNOSTIC IMAGING REPORT ---
IVP W/OR W/O TOMOGRAMS CLINICAL HISTORY: N39.0 Urinary tract [id number] kidney stones COMPARISON STUDY: CT scan dated 09/24/2017, KUB dated 09/28/2017 FINDINGS: Air Hose Coupler film reveals scattered surgical clips throughout the abdomen. There are multiple left renal calculi, the largest of which measuresr 7 mm in diameter. There is a lumbar levoscoliosis. The patient was injected with 100 cc of Optiray 300. The one film reveals prompt bilateral nephrograms. The right kidney measured 131 mm, the left kidney 134 mm. There is prompt bilateral excretion. Single nondilated ureters drain each kidney. There is no hydronephrosis. No ureteral filling defects are visualized. No bladder lesions are evident. The post void film is unremarkable. IMPRESSION: Left-sided nephrolithiasis. No evidence of obstruction. Electronically signed by: Tommy Bourne M.D. 10/11/2017 4:43 PM Dictated Date/Time: 10/11/2017 4:20 PM
== END | disposition home or self-care (01) ==
LOC: C.RAD 13:57
PROVIDERS: ATTEND Urology
DX: N20.0 Calculus of kidney (principal); N39.0 Urinary tract infection, site not specified

== ENCOUNTER → 2017-10-18 | Outpatient (CLI) | payer BC | END | disposition home or self-care (01) | LOC: C.LABSPEC 17:02 | PROVIDERS: ATTEND Urology | DX: N20.0 Calculus of kidney (principal) ==

== ENCOUNTER 2017-10-21 16:48 | Emergency (ER) | payer BC ==
[~2017-10-21] VITALS: Ht 167.6 cm; Wt 71.1 kg
[2017-10-21 16:50] VITALS: TEMP 36.8; Ht 167.6 cm; Wt 71.1 kg
[2017-10-21] MEDS ORDERED: ONDANSETRON INJ 2 MG/ML 2 ML VIAL IV STA (16:59)
[2017-10-21] MEDS ORDERED: HYDROmorphone INJ 1 MG/ML SYR IV STA ×2 (16:59→17:45)
[2017-10-21] MEDS ORDERED: SODIUM CHLORIDE 0.9% 1000ML 1,000 ML IV STA (16:59)
[2017-10-21 17:15] LABS: BASO % 0.5 %; BASO ABS # 0.06 K/uL (0-0.2); EOS % 2.2 %; EOS ABS # 0.26 K/uL (0-0.5); HEMATOCRIT 43.1 % (37-47); IG# 0.01 K/uL (0.00-0.02); LYMPH ABS # 3.14 K/uL (1.2-3.4); MEAN CELL VOLUME 90.7 fL (80-100); MEAN CORPUSCULAR HEMOGLOBIN 31.6 pg (25-34); MEAN CORPUSCULAR HGB CONC 34.8 g/dl (32-36); MONO % 7.5 %; MONO ABS # 0.91 K/uL (0.11-0.59); NEUT % 63.7 %; PLATELET COUNT 236 K/uL (130-400); RED CELL DISTRIBUTION WIDTH CV 12.9 % (11.5-14.5); RED CELL DISTRIBUTION WIDTH SD 42.8 fL (36.4-46.3); WHITE BLOOD COUNT 12.08 K/uL (4.8-10.8)
--- NOTE | 2017-10-21 17:36 | DIAGNOSTIC IMAGING REPORT ---
CT SCAN OF THE ABDOMEN AND PELVIS WITHOUT IV CONTRAST CLINICAL HISTORY: Left flank pain. COMPARISON STUDY: Abdominal CT dated 09/24/2017. TECHNIQUE: CT scan of the abdomen and pelvis is performed from the lung bases to the proximal femora. Images are reviewed in the axial, sagittal, and coronal planes. IV contrast was not administered for this examination as per the referring clinician. A dose lowering technique was utilized adhering to the principles of ALARA. CT DOSE: 932.60 mGy.cm FINDINGS: Lung bases: The heart is normal in size and without pericardial effusion. The lung bases are clear. Liver: The unenhanced liver is normal in size, contour, and attenuation. There is no intrahepatic biliary ductal dilatation. Gallbladder: Surgically absent noting clips in the gallbladder fossa. Spleen: Normal in size and attenuation. There are some scattered calcified sonogram pelvis. Pancreas: Unenhanced pancreas is moderately atrophic and grossly unremarkable. Adrenal glands: Unremarkable. Kidneys: The unenhanced kidneys are normal in size. There is a 3 mm obstructing calculus in the left proximal ureter just below the ureteropelvic junction seen on image #155. This is located at the level of L2-L3 and causes moderate left hydronephrosis. A cluster of nonobstructing calculi in the lower pole of the left kidney measures up to 8 mm in aggregate dimension. No right renal calculi are identified and there is no right-sided hydronephrosis. There is no evidence of contour deforming renal mass lesion. There is mild left-sided perinephric stranding. Abdominal vasculature: The abdominal aorta is normal in course and caliber. Stomach and bowel: There is a small hiatal hernia. Fluid is noted in the distal esophagus. There is evidence of previous gastric surgery. A small bowel anastomosis is seen in the right lower quadrant. There is focal dilatation and fecalization at the anastomotic site, possibly related to denervation. This measures up to 4.3 cm. No bowel obstruction is identified. There is moderate to severe constipation. The appendix is well-visualized and normal. Peritoneum: There is no intraperitoneal free air or abdominal ascites. Lymphadenopathy: None. Pelvic viscera: The bladder is normal as visualized. The uterus is surgically absent. No adnexal lesion is seen. Skeletal structures: There is mild lumbosacral spondylosis. No lytic or blastic lesions are seen. IMPRESSION: 1. There is a 3 mm obstructing calculus in the left proximal ureter. This causes moderate left hydronephrosis. 2. Additional nonobstructing calculi are seen in the lower pole of the left kidney. No right renal calculi are identified. 3. Postoperative changes are identified in the stomach and small bowel as above. 4. There is moderate to severe constipation. There is also fecalization of the distal small bowel, likely related to stasis. No bowel obstruction is seen. 5. Additional findings as above. Electronically signed by: Jayy Dangelo M.D. 10/21/2017 5:34 PM Dictated Date/Time: 10/21/2017 5:27 PM
[2017-10-21 17:37] LABS: CALCIUM 8.9 mg/dl (8.5-10.1); CREATININE 0.83 mg/dl (0.60-1.20); POTASSIUM 3.1 mmol/L (3.5-5.1); TOTAL PROTEIN 7.1 gm/dl (6.4-8.2)
[2017-10-21] MEDS ORDERED: NURSING VERBAL MED ORDER ONE (17:45)
[2017-10-21] MEDS ORDERED: OXYC1TAB3 PO (19:07)
[2017-10-21] MEDS ORDERED: TAMS0.4C38 PO (19:07)
[2017-10-21 19:23] VITALS: BP 129/68; PULSE 69; O2SAT 100
--- NOTE | 2017-10-22 00:09 | EMERGENCY ROOM VISIT NOTE ---
History Report prepared by Reinaldoibshaquille: Charlie Chavez Under the Supervision of: Dr. Freddie Giron D.O. First contact with patient: 16:55 Chief Complaint: KIDNEY STONE Stated Complaint: KIDNEY PAIN History of Present Illness The patient is a 52 year old female who presents to the Emergency Room with complaints of constant left flank pain since this afternoon. She currently rates her pain a 10/10 in severity. Prior to September 23, 2017, the patient denies any history of kidney stones. She notes that she developed kidney stones at that time. She had a lithotripsy September 29, 2017. She states that she was scoped October 18, [address] Cavazos for tumors, though was informed that she has kidney stones. Her last bowel movement was one hour ago. She notes nausea and gagging. She has a history of cholecystectomy. Pt denies headache, change in vision, fevers, chest pain, shortness of breath, vomiting, diarrhea, pain with urination, blood in urine, weakness/numbness in legs, and melena. Source of History: patient Onset: this afternoon Position: other (left flank ) Symptom Intensity: 10/10 Timing: constant Associated Symptoms: + nausea, No headache, No chest pain, No SOB, No vomiting, No melena, No diarrhea, No urinary symptoms (no pain with urination, no blood in urine), No weakness (legs), No numbness (legs) Note: She notes left flank pain and gagging. She denies any change in vision. Review of Systems See HPI for pertinent positives & negatives. A total of 10 systems reviewed and were otherwise negative. Past Medical & Surgical Medical Problems: (1) Asthma Family History Cancer Diabetes mellitus Gallbladder disease Heart disease Hypertension Social History Smoking Status: Never Smoker Alcohol Use: none Drug Use: none Marital Status: Housing Status: lives with family Occupation Status: employed Current/Historical Medications Scheduled Betamethasone Dip (Betamethasone Dipropionat), 1 DOSE TOP BID Biotin (Biotin), 10 MG PO QAM Calcium Carbonate-Vitamin D (Calcium + D), 1 TAB PO QAM Mometasone Furoate-Formoterol (Dulera 200/5 Mcg), 2 PUFF INH QAM Multiple Vitamins W/ Minerals (Aquadeks), 1 TAB PO BID Multiple Vitamins W/ Minerals (Hair/Skin/Nails), 1 CAP PO QAM Omeprazole (Prilosec), 20 MG PO Q2D Pediatric Multiple Vitamins W/ (Flintstones Plus Iron), 1 DOSE PO BID Ranitidine (Zantac), 150 MG PO Q2D Tamsulosin Hcl (Flomax), 0.4 MG PO DAILY Vitamin A-Beta Carotene (Vitamin A), 2 TAB PO QAM Scheduled PRN Oxycodone Immediate Rel Tab (Roxicodone Ir), 5 MG PO Q6H PRN for Pain Oxycodone/Acetaminophen 7.5MG/325MG (Percocet 7.5MG/325MG), 1-2 TAB PO Q4 PRN for Pain Allergies Coded Allergies: Adhesives (Verified Allergy, Unknown, REDNESS, 09/29/17) Latex1 -Allergic Contact Dermititis (Verified Allergy, Unknown, REDNESS, 09/29/17) NO KNOWN DRUG ALLERGIES (Verified Allergy, Unknown, ., 09/29/17) Physical Exam Vital Signs Date Time Temp Pulse Resp B/P (MAP) Pulse Ox O2 Delivery O2 Flow Rate FiO2 10/21/17 19:23 69 18 129/68 100 10/21/17 18:24 68 18 127/74 100 Room Air 10/21/17 16:50 36.8 88 18 158/105 98 Room Air Physical Exam GENERAL: Sitting up in bed, alert, well appearing, well nourished, in moderate distress, non-toxic. Holding left flank. EYE EXAM: normal conjunctiva. OROPHARYNX: no exudate, no erythema, lips, buccal mucosa, and tongue normal and mucous membranes are moist NECK: supple, no nuchal rigidity, no adenopathy, non-tender LUNGS: Clear to auscultation. Normal chest wall mechanics HEART: no murmurs, S1 normal and S2 normal ABDOMEN: abdomen soft, minimal tenderness to left flank, normo-active bowel sounds, no masses, no rebound or guarding. BACK: Back is symmetrical on inspection and there is no deformity, no midline tenderness, no CVA tenderness. SKIN: no rashes and no bruising UPPER EXTREMITIES: upper extremities are grossly normal. LOWER EXTREMITIES: No pitting edema. NEURO EXAM: Normal sensorium, cranial nerves II-XII grossly intact, normal speech, no gross weakness of arms, no gross weakness of legs. Medical Decision & Procedures ER Provider Diagnostic Interpretation: Radiology results as stated below per my review and the radiologist's interpretation: CT SCAN OF THE ABDOMEN AND PELVIS WITHOUT IV CONTRAST CLINICAL HISTORY: Left flank pain. COMPARISON STUDY: Abdominal CT dated 09/24/2017. TECHNIQUE: CT scan of the abdomen and pelvis is performed from the lung bases to the proximal femora. Images are reviewed in the axial, sagittal, and coronal planes. IV contrast was not administered for this examination as per the referring clinician. A dose lowering technique was utilized adhering to the principles of ALARA. CT DOSE: 932.60 mGy.cm FINDINGS: Lung bases: The heart is normal in size and without pericardial effusion. The lung bases are clear. Liver: The unenhanced liver is normal in size, contour, and attenuation. There is no intrahepatic biliary ductal dilatation. Gallbladder: Surgically absent noting clips in the gallbladder fossa. Spleen: Normal in size and attenuation. There are some scattered calcified sonogram pelvis. Pancreas: Unenhanced pancreas is moderately atrophic and grossly unremarkable. Adrenal glands: Unremarkable. Kidneys: The unenhanced kidneys are normal in size. There is a 3 mm obstructing calculus in the left proximal ureter just below the ureteropelvic junction seen on image #155. This is located at the level of L2-L3 and causes moderate left hydronephrosis. A cluster of nonobstructing calculi in the lower pole of the left kidney measures up to 8 mm in aggregate dimension. No right renal calculi are identified and there is no right-sided hydronephrosis. There is no evidence of contour deforming renal mass lesion. There is mild left-sided perinephric stranding. Abdominal vasculature: The abdominal aorta is normal in course and caliber. Stomach and bowel: There is a small hiatal hernia. Fluid is noted in the distal esophagus. There is evidence of previous gastric surgery. A small bowel anastomosis is seen in the right lower quadrant. There is focal dilatation and fecalization at the anastomotic site, possibly related to denervation. This measures up to 4.3 cm. No bowel obstruction is identified. There is moderate to severe constipation. The appendix is well-visualized and normal. Peritoneum: There is no intraperitoneal free air or abdominal ascites. Lymphadenopathy: None. Pelvic viscera: The bladder is normal as visualized. The uterus is surgically absent. No adnexal lesion is seen. Skeletal structures: There is mild lumbosacral spondylosis. No lytic or blastic lesions are seen. IMPRESSION: 1. There is a 3 mm obstructing calculus in the left proximal ureter. This causes moderate left hydronephrosis. 2. Additional nonobstructing calculi are seen in the lower pole of the left kidney. No right renal calculi are identified. 3. Postoperative changes are identified in the stomach and small bowel as above. 4. There is moderate to severe constipation. There is also fecalization of the distal small bowel, likely related to stasis. No bowel obstruction is seen. 5. Additional findings as above. Electronically signed by: Jayy Dangelo M.D. 10/21/2017 5:34 PM Dictated Date/Time: 10/21/2017 5:27 PM Laboratory Results 10/21/17 17:04 Red Blood Count 4.75, Mean Corpuscular Volume 90.7, Mean Corpuscular Hemoglobin 31.6, Mean Corpuscular Hemoglobin Concent 34.8, Mean Platelet Volume 11.0, Neutrophils (%) (Auto) 63.7, Lymphocytes (%) (Auto) 26.0, Monocytes (%) (Auto) 7.5, Eosinophils (%) (Auto) 2.2, Basophils (%) (Auto) 0.5, Neutrophils # (Auto) 7.70, Lymphocytes # (Auto) 3.14, Monocytes # (Auto) 0.91, Eosinophils # (Auto) 0.26, Basophils # (Auto) 0.06 10/21/17 17:04 Test 10/21/17 17:04 10/21/17 17:58 White Blood Count 12.08 K/uL (4.8-10.8) Red Blood Count 4.75 M/uL (4.2-5.4) Hemoglobin 15.0 g/dL (12.0-16.0) Hematocrit 43.1 % (37-47) Mean Corpuscular Volume 90.7 fL (80-100) Mean Corpuscular Hemoglobin 31.6 pg (25-34) Mean Corpuscular Hemoglobin Concent 34.8 g/dl (32-36) Platelet Count 236 K/uL (130-400) Mean Platelet Volume 11.0 fL (7.4-10.4) Neutrophils (%) (Auto) 63.7 % Lymphocytes (%) (Auto) 26.0 % Monocytes (%) (Auto) 7.5 % Eosinophils (%) (Auto) 2.2 % Basophils (%) (Auto) 0.5 % Neutrophils # (Auto) 7.70 K/uL (1.4-6.5) Lymphocytes # (Auto) 3.14 K/uL (1.2-3.4) Monocytes # (Auto) 0.91 K/uL (0.11-0.59) Eosinophils # (Auto) 0.26 K/uL (0-0.5) Basophils # (Auto) 0.06 K/uL (0-0.2) RDW Standard Deviation 42.8 fL (36.4-46.3) RDW Coefficient of Variation 12.9 % (11.5-14.5) Immature Granulocyte % (Auto) 0.1 % Immature Granulocyte # (Auto) 0.01 K/uL (0.00-0.02) Anion Gap 8.0 mmol/L (3-11) Est Creatinine Clear Calc Drug Dose 75.0 ml/min Estimated GFR () 94.6 Estimated GFR (Non- 81.6 BUN/Creatinine Ratio 20.5 (10-20) Calcium Level 8.9 mg/dl (8.5-10.1) Total Bilirubin 0.6 mg/dl (0.2-1) Direct Bilirubin 0.2 mg/dl (0-0.2) Aspartate Amino Transf (AST/SGOT) 13 U/L (15-37) Alanine Aminotransferase (ALT/SGPT) 32 U/L (12-78) Alkaline Phosphatase 119 U/L (45-117) Total Protein 7.1 gm/dl (6.4-8.2) Albumin 4.0 gm/dl (3.4-5.0) Lipase 91 U/L (73-393) Urine Color YELLOW Urine Appearance CLOUDY (CLEAR) Urine pH 5.0 (4.5-7.5) Urine Specific [place] 1.013 (1.000-1.030) Urine Protein NEG (NEG) Urine Glucose (UA) NEG (NEG) Urine Ketones NEG (NEG) Urine Occult Blood 1+ (NEG) Urine Nitrite NEG (NEG) Urine Bilirubin NEG (NEG) Urine Urobilinogen NEG (NEG) Urine Leukocyte Esterase NEG (NEG) Urine WBC (Auto) 1-5 /hpf (0-5) Urine RBC (Auto) 0-4 /hpf (0-4) Urine Hyaline Casts (Auto) 1-5 /lpf (0-5) Urine Epithelial Cells (Auto) 5-10 /lpf (0-5) Urine Bacteria (Auto) NEG (NEG) Urine Crystals CALCIUM OXALATE (NONE Urine Test NEG (NEG) Laboratory results per my review. Medications Administered Medications (Trade) Dose Ordered Sig/Shaan Route Start Time Stop Time Status Last Admin Dose Admin Hydromorphone HCl (Dilaudid Inj) 1 mg NOW STAT IV 10/21/17 16:59 10/21/17 17:00 DC 10/21/17 17:15 1 MG Ondansetron HCl (Zofran Inj) 4 mg NOW STAT IV 10/21/17 16:59 10/21/17 17:01 DC 10/21/17 17:15 4 MG Sodium Chloride 1,000 ml @ 999 mls/hr Q1H1M STAT IV 10/21/17 16:59 10/21/17 17:59 DC 10/21/17 17:15 999 MLS/HR Miscellaneous Information (Nursing Verbal Med Order) 1 ea ONE ONCE N/A 10/21/17 17:45 10/21/17 17:46 DC 10/21/17 17:43 1 EA ED Course ED COURSE: Vital signs were reviewed and showed hypertensive. The patients medical record was reviewed The above diagnostic studies were performed and reviewed. ED treatments and interventions as stated above. 1655: The patient was evaluated in room A12B. A complete history and physical examination was performed. 1659: Ordered Sodium Chloride 1,000 ml @ 999 mls/hr IV, Zofran 4 mg IV, and Dilaudid 1 mg IV 1737: The patient is still having pain. 1745: Ordered Dilaudid 1 mg IV 1823: The patient is requesting something to drink. 1832: I reassessed the patient at this time. She is resting. 1900: Upon reevaluation, the patient is feeling better. I discussed my findings with the patient and she understands and agrees with the treatment plan. Based on the patients age, coexisting illnesses, exam and lab findings the decision to treat as an outpatient was made. The patient remained stable while under my care. The patient appeared well at the time of discharge. Medical Decision Differential diagnoses includes but is not limited to gastritis, peptic ulcer disease, GERD, gallbladder disease, pancreatitis, small bowel obstruction, acute coronary syndrome, pericarditis, ischemic bowel, irritable bowel disease, irritable bowel syndrome, appendicitis, diverticulitis, malignancy, hernia, urinary tract infection, torsion, /ectopic , perforation, trauma, infectious. Patient is a 52-year-old female who presents to ER for severe left-sided flank pain. She is a history of kidney stones. She notes this feels significantly worse. Started suddenly this morning. CBC all BMP, LFTs, bilirubin lipase shows a mild hypokalemia. UA was negative. was negative. CT of the abdomen and pelvis shows a 3 mm stone at the left proximal ureter with mild [place]. UA was unremarkable without infection. Patient was given 2 doses of IV Dilaudid. She feels better. She is discharged follow-up with her urologist. She is given a short prescription of pain medications as she has multiple narcotics at home. She was also given Flomax. Discussed with Pt concerning signs and symptoms to watch out for. Pt was instructed to follow up with their PCP and discussed with the patient their option to return to the ED at anytime for persistent or worsening symptoms. The appropriate anticipatory guidance and out-patient management, including indications for return to the emergency department, were explained at length to the patient and understood. Medication Reconcilliation Current Medication List: was personally reviewed by me Blood Pressure Screening Patient's blood pressure: Elevated blood pressure Blood pressure disposition: Elevated BP felt to be situational Impression Primary Impression: Renal colic Additional Impression: Hydronephrosis Scribe Attestation The scribe's documentation has been prepared under my direction and personally reviewed by me in its entirety. I confirm that the note above accurately reflects all work, treatment, procedures, and medical decision making performed by me. Departure Information Dispostion Home / Self-Care Prescriptions Oxycodone Immediate Rel Tab (ROXICODONE IR) 5 Mg Tab 5 MG PO Q6H Y for Pain, #6 TAB Prov: Freddie Giron, DO 10/21/17 Tamsulosin Hcl (FLOMAX) 0.4 Mg Cap 0.4 MG PO DAILY, #10 CAP Prov: Freddie Giron, DO 10/21/17 Referrals Russ Brenner M.D. (PCP) Forms HOME CARE DOCUMENTATION FORM, IMPORTANT VISIT INFORMATION, Work Instructions Patient Instructions Kidney Stones - [facility], [facility] Additional Instructions Please follow up with your primary care doctor with in the next 24 hours. Any worsening of your symptoms, please return to the ED immediately. This includes any fevers greater than 100.4, worsening pain, chest pain, shortness breath, persistent nausea, vomiting, unable to eat or drink, or any other concerning signs or symptoms from your standpoint. You were given medications during this visit that will inhibit your ability to drive, operate machinery and work. Please do NOT drive, operate machinery or work for the next 12hrs. You were also given a prescription for a narcotic. While taking this medication you should also not drive, operate machinery and or work. Please call urology on Monday morning to set up appointment. You have a 3 mm stone in the left proximal ureter. Problem Qualifiers Additional Impression: Hydronephrosis Hydronephrosis type: unspecified Qualified Codes: N13.30 - Unspecified hydronephrosis
== END 2017-10-21 19:20 | disposition home or self-care (01) ==
LOC: C.EDB 16:49 → C.EDA 19:20
DX: N13.2 Hydronephrosis with renal and ureteral calculous obstruction (principal); R11.0 Nausea

== ENCOUNTER → 2017-10-26 | Outpatient (CLI) | payer BC ==
[~2017-10-26] MED LIST changes: -OXYC-57 PO; +OXYC1TAB3 PO; +TAMS0.4C38 PO
--- NOTE | 2017-10-26 12:54 | DIAGNOSTIC IMAGING REPORT ---
KUB CLINICAL HISTORY: KIDNEY STONE nephrocalcinosis COMPARISON STUDY: 10/11/2017 FINDINGS: Limited study due to extensive bowel content obscuring the bulk of the renal shadows. Several small calcifications are identified at the lower pole left kidney. The mid and upper aspects of the left kidney as well as the as well as the entire right kidney are poorly seen. IMPRESSION: 1. Very limited study due to extensive bowel content. 2. Multiple small calcifications overlying the lower pole left kidney. 3.. The remainder of the examination shows kidneys to be obscured by fecal material The above report was generated using voice recognition software. It may contain grammatical, syntax or spelling errors. Electronically signed by: Zach Chavez M.D. 10/26/2017 12:53 PM Dictated Date/Time: 10/26/2017 12:51 PM
== END | disposition home or self-care (01) ==
LOC: C.RAD 12:21
PROVIDERS: ATTEND Urology
DX: N20.0 Calculus of kidney (principal)

== ENCOUNTER → 2017-12-11 | Outpatient (CLI) | payer BC ==
[~2017-12-11] MED LIST changes: +RANI150T85 PO; -TAMS0.4C38 PO; -ZNTT/150 PO
[2017-12-11 12:29] LABS: BASO % 0.8 %; BASO ABS # 0.05 K/uL (0-0.2); EOS % 1.9 %; EOS ABS # 0.12 K/uL (0-0.5); HEMATOCRIT 42.4 % (37-47); HEMOGLOBIN 14.8 g/dL (12.0-16.0); LYMPH ABS # 1.62 K/uL (1.2-3.4); MEAN CELL VOLUME 92.8 fL (80-100); MEAN CORPUSCULAR HEMOGLOBIN 32.4 pg (25-34); MEAN CORPUSCULAR HGB CONC 34.9 g/dl (32-36); MEAN PLATELET VOLUME 11.8 fL (7.4-10.4); MONO % 5.8 %; MONO ABS # 0.36 K/uL (0.11-0.59); NEUT % 65.5 %; NEUT ABS # 4.07 K/uL (1.4-6.5); PLATELET COUNT 198 K/uL (130-400); RED CELL DISTRIBUTION WIDTH CV 13.6 % (11.5-14.5); RED CELL DISTRIBUTION WIDTH SD 46.3 fL (36.4-46.3); WHITE BLOOD COUNT 6.22 K/uL (4.8-10.8)
[2017-12-11 13:24] LABS: ALBUMIN 3.7 gm/dl (3.4-5.0); ALT/SGPT 61 U/L (12-78); BLOOD UREA NITROGEN 16 mg/dl (7-18); CALCIUM 8.7 mg/dl (8.5-10.1); CARBON DIOXIDE 25 mmol/L (21-32); CHOLESTEROL 110 mg/dl (0-200); CREATININE 0.66 mg/dl (0.60-1.20); GLUCOSE 79 mg/dl (70-99); POTASSIUM 3.4 mmol/L (3.5-5.1); SODIUM 143 mmol/L (136-145)
[2017-12-11 13:34] LABS: ALKALINE PHOSPHATASE 110 U/L (45-117); AST/SGOT 41 U/L (15-37); LDL CHOLESTEROL CALCULATED 44 mg/dl; TOTAL PROTEIN 6.3 gm/dl (6.4-8.2)
== END | disposition home or self-care (01) ==
LOC: C.LABBFT 08:04
PROVIDERS: ATTEND Internal Medicine
DX: R53.83 Other fatigue (principal); Z13.6 Encounter for screening for cardiovascular disorders; E50.9 Vitamin A deficiency, unspecified

== ENCOUNTER → 2017-12-25 | Outpatient (CLI) | payer BC ==
[2017-12-25 13:45] LABS: ALBUMIN 3.7 gm/dl (3.4-5.0); ALT/SGPT 63 U/L (12-78); AST/SGOT 30 U/L (15-37); BLOOD UREA NITROGEN 17 mg/dl (7-18); CALCIUM 8.7 mg/dl (8.5-10.1); CARBON DIOXIDE 25 mmol/L (21-32); CREATININE 0.68 mg/dl (0.60-1.20); GLUCOSE 82 mg/dl (70-99); POTASSIUM 3.3 mmol/L (3.5-5.1); SODIUM 141 mmol/L (136-145)
[2017-12-25 13:48] LABS: ALKALINE PHOSPHATASE 123 U/L (45-117); TOTAL PROTEIN 6.6 gm/dl (6.4-8.2)
== END | disposition home or self-care (01) ==
LOC: C.LABBFT 07:36
PROVIDERS: ATTEND Internal Medicine
DX: R79.9 Abnormal finding of blood chemistry, unspecified (principal)

== ENCOUNTER → 2018-01-25 | Outpatient (CLI) | payer BC ==
[2018-01-25 17:04] LABS: BLOOD UREA NITROGEN 14 mg/dl (7-18); CALCIUM 8.1 mg/dl (8.5-10.1); CARBON DIOXIDE 25 mmol/L (21-32); CREATININE 0.68 mg/dl (0.60-1.20); GLUCOSE 83 mg/dl (70-99); POTASSIUM 3.5 mmol/L (3.5-5.1); SODIUM 144 mmol/L (136-145)
== END | disposition home or self-care (01) ==
LOC: C.LABBFT 13:17
PROVIDERS: ATTEND Internal Medicine
DX: E87.6 Hypokalemia (principal)

== ENCOUNTER → 2018-02-21 | Outpatient (CLI) | payer BC ==
--- NOTE | 2018-02-21 09:00 | DIAGNOSTIC IMAGING REPORT ---
R PELVIS/UNILATERAL HIP 2-3VIEWS, SI JOINTS 3 OR MORE VIEWS, R FEMUR 2 VIEWS ROUTINE CLINICAL HISTORY: RT HIP PAIN COMPARISON STUDY: Sacroiliac joints 05/02/2013. FINDINGS: There are surgical clips overlying the right side of the sacrum. No fracture or dislocation within the pelvis, hips, right femur. The sacrum is intact. Degenerative changes within the lower lumbar spine. Bilateral hip cartilage spaces are maintained. Bilateral sacroiliac joints are within normal limits. No erosions identified. No fusion of the joint spaces. Soft tissues are unremarkable. No knee effusion. Mild osteoarthritis within the right knee. IMPRESSION: 1. No significant abnormality within the pelvis, hips, right femur, or bilateral sacroiliac joints. 2. Degenerative changes seen within the lower lumbar spine and right knee. Electronically signed by: Damian Maldonado M.D. 02/21/2018 8:58 AM Dictated Date/Time: 02/21/2018 8:55 AM
== END | disposition home or self-care (01) ==
LOC: C.RAD1850 08:28
PROVIDERS: ATTEND Nurse Practitioner
DX: M25.551 Pain in right hip (principal); M54.5 Low back pain

== ENCOUNTER → 2018-04-27 | Outpatient (CLI) | payer BC ==
[~2018-04-27] MED LIST changes: -OXYC1TAB3 PO
--- NOTE | 2018-04-27 13:16 | DIAGNOSTIC IMAGING REPORT ---
KUB CLINICAL HISTORY: N20.0 Kidney [id number] COMPARISON STUDY: 10/26/2017 FINDINGS: Increased fecal load throughout the colon. No evidence for fecal impaction. No significant small bowel distention. IMPRESSION: Increased fecal load throughout the colon. Urinary tracts are not well seen given this amount of overlapping material. The above report was generated using voice recognition software. It may contain grammatical, syntax or spelling errors. Electronically signed by: Zach Chavez M.D. 04/27/2018 1:15 PM Dictated Date/Time: 04/27/2018 1:14 PM
== END | disposition home or self-care (01) ==
LOC: C.RAD 12:21
PROVIDERS: ATTEND Urology
DX: N20.0 Calculus of kidney (principal); K59.00 Constipation, unspecified

== ENCOUNTER → 2018-04-30 | Outpatient (CLI) | payer BC ==
--- NOTE | 2018-04-30 11:21 | DIAGNOSTIC IMAGING REPORT ---
KUB CLINICAL HISTORY: STONES nephrocalcinosis COMPARISON STUDY: 04/27/2018 FINDINGS: Improved visibility of the urinary tracts. No significant right nephrocalcinosis. Left kidney shows several calcifications at its mid to lower pole measuring up to 4 mm up. No significant paravertebral calcifications. Nonobstructive bowel pattern. IMPRESSION: Several lower pole left renal calcifications measuring up to 4 mm. Otherwise unremarkable exam The above report was generated using voice recognition software. It may contain grammatical, syntax or spelling errors. Electronically signed by: Zach Chavez M.D. 04/30/2018 11:19 AM Dictated Date/Time: 04/30/2018 11:18 AM
--- NOTE | 2018-04-30 11:53 | DIAGNOSTIC IMAGING REPORT ---
(DANIEL/BLAD)RETROPERITON COMP HISTORY: Nephrocalcinosis N20.0 Kidney stones COMPARISON: None. FINDINGS: Right kidney: Maximum dimension 11.5 cm. No evidence for hydronephrosis. Left kidney: Maximum dimension 10.8 cm. Several small calcifications lower pole left kidney. No evidence for hydronephrosis. Normal corticomedullary differentiation and cortical thickness. Bladder: No bladder wall thickening. The bilateral ureteral jets were identified. IMPRESSION: 1. Several nonobstructing calcifications lower pole left kidney. 2. Study is otherwise negative with no evidence for hydronephrosis. The above report was generated using voice recognition software. It may contain grammatical, syntax or spelling errors. Electronically signed by: Zach Chavez M.D. 04/30/2018 11:52 AM Dictated Date/Time: 04/30/2018 11:50 AM
== END | disposition home or self-care (01) ==
LOC: C.ULTR 10:40
PROVIDERS: ATTEND Urology
DX: N20.0 Calculus of kidney (principal); N28.89 Other specified disorders of kidney and ureter

== ENCOUNTER → 2018-05-08 | Outpatient (CLI) | payer BC ==
[~2018-05-08] MED LIST changes: -CALC600T9 PO; -RANI150T85 PO
[2018-05-08 14:17] LABS: HEMATOCRIT 38.8 % (37-47); MEAN CELL VOLUME 90.9 fL (80-100); MEAN CORPUSCULAR HEMOGLOBIN 30.4 pg (25-34); MEAN CORPUSCULAR HGB CONC 33.5 g/dl (32-36); MEAN PLATELET VOLUME 10.2 fL (7.4-10.4); PLATELET COUNT 204 K/uL (130-400); RED CELL DISTRIBUTION WIDTH SD 46.3 fL (36.4-46.3); WHITE BLOOD COUNT 6.49 K/uL (4.8-10.8)
[2018-05-08 14:29] LABS: BLOOD UREA NITROGEN 15 mg/dl (7-18); CARBON DIOXIDE 27 mmol/L (21-32); CREATININE 0.54 mg/dl (0.60-1.20); POTASSIUM 4.2 mmol/L (3.5-5.1); SODIUM 142 mmol/L (136-145)
[2018-05-08 14:45] LABS: BASO % 0.6 %; BASO ABS # 0.04 K/uL (0-0.2); EOS % 1.4 %; EOS ABS # 0.09 K/uL (0-0.5); LYMPH % 50.8 %; MONO % 9.2 %; NEUT ABS # 2.46 K/uL (1.4-6.5)
== END | disposition home or self-care (01) ==
LOC: C.LAB 12:56
PROVIDERS: ATTEND Urology
DX: N20.0 Calculus of kidney (principal)

== ENCOUNTER → 2018-05-24 | Outpatient (CLI) | payer BC ==
[~2018-05-24] MED LIST changes: +OXYC-57 PO
--- NOTE | 2018-05-24 19:00 | DIAGNOSTIC IMAGING REPORT ---
KUB CLINICAL HISTORY: N20.0 Kidney [id number] COMPARISON STUDY: 04/30/2018 FINDINGS: There are postsurgical changes are prior cholecystectomy. There are several suture lines within the bowel. There is no pathologic bowel dilatation. The renal shadows are partially obscured overlying bowel gas and fecal material. There are multiple left renal calculi with a cluster of 5 lower pole calculi measuring 10 mm in aggregate. There are no calcifications suspicious for ureteral calculi. IMPRESSION: Left-sided nephrolithiasis. Electronically signed by: Tommy Bourne M.D. 05/24/2018 6:59 PM Dictated Date/Time: 05/24/2018 6:57 PM
== END | disposition home or self-care (01) ==
LOC: C.RAD 18:25
PROVIDERS: ATTEND Urology
DX: N20.0 Calculus of kidney (principal)

== ENCOUNTER → 2018-05-25 | Day surgery (SDC) | payer BC ==
[2018-05-04 13:07] VITALS: Ht 167.6 cm; Wt 64.5 kg
[~2018-05-25] VITALS: Ht 167.6 cm; Wt 64.5 kg
[~2018-05-25] MED LIST changes: +ATROPINE SULFATE 0.1 MG/ML 5ML SYR IV PRN; +CIPROFLOXACIN 400MG / D5W IV SCH; +DEXAMETHASONE SOD INJ 4 MG/ML VIAL ONE; +EpHEDrine SULFATE INJ 50 MG/ML AMP IV PRN; +EpHEDrine SULFATE INJ 50 MG/ML AMP ONE; +FENTANYL CITRATE INJ 50 MCG/1 ML 2 ML VIAL IV PRN; +FENTANYL CITRATE INJ 50 MCG/1 ML 2 ML VIAL ONE; +GLYCOPYRROLATE INJ 0.2 MG/ML VIAL ONE; +LACTATED RINGER'S 1000ML 1,000 ML IV SCH; +LIDOCAINE HCL 2% 2 ML VIAL (20MG/ML) ONE; +MIDAZOLAM HCL 1 MG/ML 2ML VIAL ONE; +ONDANSETRON INJ 2 MG/ML 2 ML VIAL IV PRN; +ONDANSETRON INJ 2 MG/ML 2 ML VIAL ONE; +OXYCODONE/ACETAMINOPHEN 5-325 TAB PO PRN; +PROPOFOL IV EMULSION 10 MG/ML 20 ML VIAL ONE; +SCOPOLAMINE 1.5 MG TDSY TD ONE
--- NOTE | 2018-05-25 12:02 | Discharge Instructions-SurgCtr ---
Discharge Instructions Date of Service May 25, 2018. Visit Reason for Visit: Kidney Stones Discharge Discharge Diagnosis / Problem: STONES Discharge Goals Goal(s): Therapeutic intervention Activity Recommendations Activity Limitations: per Instructions/Follow-up section Exercise/Sports Limitations: rest today May Resume Sexual Activity: when tolerated Shower/Bathe: no limitations Driving or Machine Use: resume 1 day after discharge MEDICATIONS: Resume previous medications unless instructed otherwise by your surgeon. Resume pre-ESWL medication except for aspirin, coumadin or other blood thinners. __ Toradol 10 mg every 6 hours for initial pain. __ Lortab 5 mg 1-2 every 4 hours for pain. _X_ Percocet 5 mg 1-2 every 4 hours for pain. __ Macrodantin 50 mg x 3 a day. __ Flomax 1 tab daily one half (1/2) hour after supper. SPECIAL CARE INSTRUCTIONS: 1. Get KUB (x-ray) _X_ day before or day of office visit and bring x-ray to office __ get x-ray 2 days before and tell office you are getting x-rays when you call for the appointment. 2. Strain ALL urine. 3. Please call if you have a fever, chills, severe pain, or constant dribbling of urine. 4. Office phone number . FOLLOW UP VISIT: Please call the office to schedule a follow-up appointment at . Anesthesia . Post Anesthesia Instructions: If you have had General Anesthesia or IV Sedation: * Do not drive today. * Resume driving when surgeon permits. * Do not make important decisions or sign legal documents today. * Call surgeon for: 1. Temperature elevations greater than 101 degrees F. 2. Uncontrollable pain. 3. Excessive bleeding. 4. Persistent nausea and vomiting. 5. Medication intolerance (nausea, vomiting or rash). * For nausea and vomiting use only clear liquids such as: tea, soda, bouillon until nausea subsides, then gradually increase diet as tolerated. * If you have any concerns or questions, call your surgeon's office. If physician is unavailable and it is an emergency, call 911 or go to the nearest emergency room. . Diet Recommendations Home Diet: resume previous diet Pending Studies Studies pending at discharge: no Medical Emergencies . Who to Call and When: Medical Emergencies: If at any time you feel your situation is an emergency, please call 911 immediately. . Non-Emergent Contact Non-Emergency issues call your: Urologist Call Non-Emergent contact if: temperature is above 101.5, your pain is not controlled . . "Provider Documentation" section prepared by Carlos Toribio. . [place] Drug Monitoring Program Search Results: patient reviewed within database
--- NOTE | 2018-05-25 12:04 | [facility] Operative Report ---
Operative Report Operative Date May 25, 2018. Pre-Operative Diagnosis RENAL STONE Post-Operative Diagnosis SAME PREOP Procedure(s) Performed Left Extracorporeal Shock Wave Lithotripsy- RENAL Surgeon DR. Mylene VENTURA Cattle Inspector Surgeon(s) NONE Estimated Blood Loss 0 ML Findings LEFT RENAL STONES Specimens NONE Drains None Anesthesia Type General Complication(s) none Disposition yes Recovery Room / PACU Indications LEFT RENAL STONES Description of Procedure Patient was identified in the preoperative holding area, appropriate informed consent was reviewed and completed and the patient was transported to the operating suite. Upon arrival appropriate preoperative antibiotics were administered and general anesthesia induced. The patient was placed in supine position and the stone was localized under fluoroscopy. A total of [_2500__] shocks were delivered to the stone. There appeared to be good fragmentation of the stone. Details of this procedure can be found on the [place] [facility] information sheet. At the conclusion of the case the patient was extubated and taken to the PACU in stable condition. There were no complications. I attest to the content of the Intraoperative Record and any orders documented therein. Any exceptions are noted below.
--- NOTE | 2018-05-25 13:06 | Anesthesia Progress Nt - [facility] ---
Anesthesia Post Op Note Date & Time May 25, 2018 at 13:05 Vital Signs Pain Intensity: 4 Vital Signs Past 12 Hours Date Time Temp Pulse Resp B/P (MAP) Pulse Ox O2 Delivery O2 Flow Rate FiO2 05/25/18 13:02 37.2 05/25/18 13:00 130/67 (87) 05/25/18 12:57 85 12 97 05/25/18 12:57 70 12 05/25/18 12:55 128/82 (94) 05/25/18 12:52 73 13 05/25/18 12:52 76 13 100 05/25/18 12:52 Room Air 05/25/18 12:50 130/67 (90) 05/25/18 12:47 66 15 05/25/18 12:47 66 15 100 05/25/18 12:45 131/74 (90) 05/25/18 12:42 67 16 05/25/18 12:42 66 16 100 05/25/18 12:40 130/72 (87) 05/25/18 12:37 72 16 05/25/18 12:37 71 16 99 05/25/18 12:35 128/70 (88) 05/25/18 12:32 73 17 98 05/25/18 12:32 73 17 05/25/18 12:30 137/72 (91) 05/25/18 12:27 36.2 76 16 137/72 99 Diffusion Mask 5 05/25/18 09:29 36.9 53 18 130/81 (97) 98 Room Air Notes Mental Status: alert / awake / arousable, participated in evaluation Pt Amnestic to Procedure: Yes Nausea / Vomiting: adequately controlled Pain: adequately controlled Airway Patency, RR, SpO2: stable & adequate BP & HR: stable & adequate Hydration State: stable & adequate Anesthetic Complications: no major complications apparent
[2018-05-25 13:36] VITALS: BP 108/64; PULSE 70; O2SAT 97
== END | disposition home or self-care (01) ==
LOC: X.SURG 09:04
PROVIDERS: ATTEND Urology
DX: N20.0 Calculus of kidney (principal); J45.909 Unspecified asthma, uncomplicated; K21.9 Gastro-esophageal reflux disease without esophagitis; K76.0 Fatty (change of) liver, not elsewhere classified; R13.10 Dysphagia, unspecified; E50.9 Vitamin A deficiency, unspecified; Z87.440 Personal history of urinary (tract) infections; Z90.49 Acquired absence of other specified parts of digestive tract; Z90.710 Acquired absence of both cervix and uterus; Z79.52 Long term (current) use of systemic steroids